=== PATIENT | male | born 1940 | race Caucasian/White ===

== ENCOUNTER → 2020-01-04 | Outpatient (CLI) | payer OTHER ==
[~2020-01-04] MED LIST: ACET325T26 PO; ASCO500T8 PO; ASPI325T80 PO; CALC-316 PO; CHOL100012 PO; HYDR50CA PO; MAGN400C PO; OXYC-307 PO; TAMS-11 PO; TIZA2CAP2 PO
[2020-01-04 11:42] LABS: MICROSCOPIC NOT IND
[2020-01-04 12:32] LABS: BASOPHILS % (AUTO) 1 % (0-1); EOSINOPHILS % (AUTO) 1 % (1-7); LYMPHOCYTES % (AUTO) 16 % (22-44); MEAN CORPUSCULAR HEMOGLOBIN 31.6 pg (27.5-34.5); MEAN CORPUSCULAR HGB CONC 33.3 g/dL (33.2-36.2); MEAN PLATELET VOLUME 8.7 fL (7.4-10.4); MONOCYTES % (AUTO) 6 % (2-9); NEUTROPHILS % (AUTO) 77 % (42-75); PLATELET COUNT 227 x10^3/uL (130-400); RED BLOOD COUNT 4.32 x10^6/uL (4.38-5.82); RED CELL DISTRIBUTION WIDTH 14.7 % (9.4-14.8)
[2020-01-04 12:41] LABS: INTERNATIONAL NORMALIZED RATIO 1.08 (0.93-1.1); MD NO; PROTHROMBIN TIME 11.4 Seconds (9.6-11.5)
[2020-01-04 12:44] LABS: ANION GAP 7 mmol/L (5-15); CHLORIDE 109 mmol/L (98-107)
[2020-01-04 12:46] LABS: CREATININE 0.62 mg/dL (0.7-1.3)
== END | disposition home or self-care (01) ==
LOC: STAR 10:53
PROVIDERS: ATTEND Orthopaedic Surgery
DX: Z01.810 Encounter for preprocedural cardiovascular examination (principal); Z01.818 Encounter for other preprocedural examination; M17.11 Unilateral primary osteoarthritis, right knee; M25.561 Pain in right knee; I49.1 Atrial premature depolarization; R94.31 Abnormal electrocardiogram [ECG] [EKG]; Z79.01 Long term (current) use of anticoagulants; Z20.828 Contact with and (suspected) exposure to other viral communicable diseases
CPT/HCPCS: 36415; 80048; 81003; 83036; 85025; 85610; 85730; 87081; 87635; 87806; 93005; G0475